=== PATIENT | male | born 1990 | race Native Hawaiian/Other Pacific Islander ===

== ENCOUNTER 2017-01-17 03:12 | Emergency (ER) | payer OTHER ==
[~2017-01-17] VITALS: Ht 165.1 cm; Wt 70.3 kg
[2017-01-17 05:29] LABS: POTASSIUM 3.4 mmol/L (3.6-5.2); SODIUM 135 mmol/L (136-145)
[2017-01-17 05:32] LABS: PLATELET COUNT 258 K/uL (142-355)
[2017-01-17 11:33] VITALS: BP 104/70; TEMP 98.4
== END 2017-01-17 11:36 | disposition home or self-care (01) ==
LOC: ED 03:12
PROVIDERS: Specialist
DX: R11.2 Nausea with vomiting, unspecified (principal); R10.9 Unspecified abdominal pain; B34.9 Viral infection, unspecified
CPT/HCPCS: 36415; 74022; 80053; 80307; 81000; 85027; 96374; 96375; 99284; G0479; J1885; J2550; Q9963

== ENCOUNTER 2018-01-01 09:52 | Emergency (ER) | payer OTHER ==
[~2018-01-01] VITALS: Ht 165.1 cm; Wt 77.6 kg
[2018-01-01 09:59] VITALS: TEMP 98.1
[2018-01-01 11:03] VITALS: BP 128/74
== END 2018-01-01 11:03 | disposition home or self-care (01) ==
LOC: ED 09:52
PROC: 3E1CX8Z Irrigation of Eye using Irrigating Substance (ICD-10-PCS; principal; 2018-01-01)
DX: S05.02XA Injury of conjunctiva and corneal abrasion without foreign body, left eye, initial encounter (principal); H10.89 Other conjunctivitis
CPT/HCPCS: 99283

== ENCOUNTER 2018-05-07 08:18 | Emergency (ER) | payer OTHER ==
[~2018-05-07] VITALS: Ht 165.1 cm; Wt 72.6 kg
[2018-05-07 08:28] VITALS: TEMP 98
[2018-05-07 09:16] LABS: PLATELET COUNT 270 K/uL (142-355)
[2018-05-07 09:20] LABS: POTASSIUM 3.8 mmol/L (3.6-5.2)
[2018-05-07 10:05] VITALS: BP 124/76
== END 2018-05-07 10:05 | disposition home or self-care (01) ==
LOC: ED 08:18
PROVIDERS: Emergency Medicine
DX: N20.0 Calculus of kidney (principal)
CPT/HCPCS: 80053; 81000; 85027; 96360; 96374; 96375; 99284; J1885; J2405

== ENCOUNTER 2019-12-23 01:28 | Emergency (ER) | payer OTHER ==
[~2019-12-23] VITALS: Ht 165.1 cm; Wt 74.8 kg
[2019-12-23 02:08] LABS: PLATELET COUNT 261 K/uL (142-355)
[2019-12-23 02:12] LABS: POTASSIUM 3.8 mmol/L (3.6-5.2)
[2019-12-23 02:19] VITALS: BP 129/93; TEMP 98.2
[2019-12-23 02:23] LABS: PARTIAL THROMBOPLASTIN TIME 27.9 SECONDS (24.5-33.6)
== END 2019-12-23 02:20 | disposition short-term general hospital (02) ==
LOC: ED 01:28
PROVIDERS: Hospitalist
DX: N50.811 Right testicular pain (principal)
CPT/HCPCS: 36415; 80048; 85027; 85610; 85730; 96372; 99283; J1170; J1885; J2405

== ENCOUNTER 2019-12-26 13:58 | Emergency (ER) | payer OTHER ==
[~2019-12-26] VITALS: Ht 165.1 cm; Wt 74.8 kg
[2019-12-26 14:28] LABS: PLATELET COUNT 300 K/uL (142-355)
[2019-12-26 14:40] LABS: POTASSIUM 4.1 mmol/L (3.6-5.2)
[2019-12-26 16:14] VITALS: BP 107/63; TEMP 99.1
== END 2019-12-26 16:14 | disposition home or self-care (01) ==
LOC: ED 13:58
PROVIDERS: Emergency Medicine Emergency Medical Services
DX: N20.1 Calculus of ureter (principal)
CPT/HCPCS: 36415; 80053; 85027; 96360; 96361; 96374; 96375; 99284; J1170; J1885; J2270; J2405

== ENCOUNTER 2021-01-16 18:09 | Outpatient (CLI) | payer BC | END 2021-01-16 20:32 | disposition home or self-care (01) | LOC: LABW 18:09 | PROVIDERS: ATTEND Obstetrics & Gynecology | DX: Z00.00 Encounter for general adult medical examination without abnormal findings (principal) | CPT/HCPCS: 36415; 86900; 86901 ==

== ENCOUNTER 2021-05-01 00:01 | Emergency (ER) | payer BC ==
[~2021-05-01] VITALS: Ht 165.1 cm; Wt 83.9 kg
[2021-05-01 00:26] LABS: PLATELET COUNT 292 K/uL (142-355)
[2021-05-01 00:47] LABS: POTASSIUM 2.8 mmol/L (3.6-5.2)
[2021-05-01 01:40] VITALS: BP 122/70; TEMP 97.6
[2021-05-01 01:43] LABS: PARTIAL THROMBOPLASTIN TIME 25.4 SECONDS (24.5-33.6)
== END 2021-05-01 01:44 | disposition home or self-care (01) ==
LOC: ED 00:01
PROVIDERS: Hospitalist
DX: M54.16 Radiculopathy, lumbar region (principal); E87.6 Hypokalemia
CPT/HCPCS: 36415; 80048; 80320; 85027; 85610; 85730; 96372; 99283; J1885; J2930

== ENCOUNTER 2021-07-08 07:20 | Emergency (ER) | payer OTHER ==
[~2021-07-08] VITALS: Ht 165.1 cm; Wt 72.6 kg
[2021-07-08 07:27] VITALS: TEMP 98.7
[2021-07-08 07:58] LABS: PLATELET COUNT 262 K/uL (142-355)
[2021-07-08 08:08] LABS: POTASSIUM 3.6 mmol/L (3.6-5.2)
[2021-07-08 11:23] VITALS: BP 126/71
== END 2021-07-08 11:23 | disposition still patient (30) ==
LOC: ED 07:20
PROVIDERS: Hospitalist
DX: N13.2 Hydronephrosis with renal and ureteral calculous obstruction (principal); Z87.442 Personal history of urinary calculi; R10.84 Generalized abdominal pain
CPT/HCPCS: 36415; 80053; 80307; 81000; 83690; 85027; 96360; 96374; 96375; 99284; J1885; J1956; J2270; J2405

== ENCOUNTER 2021-12-24 18:48 | Emergency (ER) | payer OTHER ==
[~2021-12-24] VITALS: Ht 165.1 cm; Wt 72.6 kg
[2021-12-24 19:00] VITALS: TEMP 99
[2021-12-24 19:54] LABS: PLATELET COUNT 313 K/uL (142-355)
[2021-12-24 20:25] VITALS: BP 131/76
== END 2021-12-24 20:25 | disposition home or self-care (01) ==
LOC: ED 18:48
PROVIDERS: Emergency Medicine
DX: M79.18 Myalgia, other site (principal); E86.0 Dehydration
CPT/HCPCS: 36415; 80053; 81002; 85027; 96360; 96374; 96376; 99284; J1885; J2405

== ENCOUNTER 2022-04-18 09:17 | Emergency (ER) | payer BC ==
[~2022-04-18] VITALS: Ht 165.1 cm; Wt 80.3 kg
[2022-04-18 10:17] LABS: PLATELET COUNT 263 K/uL (142-355)
[2022-04-18 10:27] LABS: POTASSIUM 4.3 mmol/L (3.6-5.2)
[2022-04-18 11:35] VITALS: BP 118/67; TEMP 97.9
== END 2022-04-18 11:40 | disposition home or self-care (01) ==
LOC: ED 09:17
PROVIDERS: Emergency Medicine
DX: K29.00 Acute gastritis without bleeding (principal)
CPT/HCPCS: 36415; 80053; 85027; 96361; 96374; 99284; J2405